=== PATIENT | female | born 1970 | race Caucasian/White ===

== ENCOUNTER → 2017-12-16 | Outpatient (CLI) | payer OTHER | END | disposition home or self-care (01) | LOC: RADMRIMAIN 13:44 | PROVIDERS: ATTEND Family Medicine | DX: R20.0 Anesthesia of skin (principal) | CPT/HCPCS: 82565 ==

== ENCOUNTER → 2018-01-21 | Outpatient (CLI) | payer OTHER ==
--- NOTE | 2018-01-21 16:32 | CT ---
EXAMINATION TYPE: CT brain wo/w con DATE OF EXAM: 01/21/2018 COMPARISON: NONE HISTORY: Left side facial numbness CT DLP: 1620.4 mGycm, Automated exposure control for dose reduction was used. CONTRAST: Patient injected with 100ml mL of Isovue M300. CT of the brain is performed utilizing 3 mm thick sections through the posterior fossa and 3 mm thick sections through the remaining calvarium. Study is performed within 24 hours of arrival to the hospital. No abnormal hyperdensity is present to suggest an acute intracranial hemorrhage. No mass lesion is evident. No acute infarcts are evident. Ventricles and sulci are appropriate for the patient age. No abnormal enhancement is evident. Paranasal sinuses and mastoid air cells within the [id number] are clear. IMPRESSIONS: 1. Normal pre and postcontrast CT brain.
--- NOTE | 2018-01-21 16:47 | CT ---
EXAMINATION TYPE: CT sinus w con DATE OF EXAM: 01/21/2018 COMPARISON: NONE HISTORY: Left side facial numbness CT DLP: 514.1 mGycm CONTRAST: 100ml mL of Isovue M300 The paranasal sinuses are examined in the axial plane at 2 mm thick sections. Reconstructed images i n the coronal plane were obtained. There is dental amalgam scatter artifact The maxillary sinuses are clear. The ethmoid air cells are clear. The sphenoid sinuses are clear. The frontal sinuses are clear. The septum is evaluated. There is septal deviation to the right. The ostiomeatal units are patent. IMPRESSIONS: 1. Normal paranasal sinuses. 2. Right septal deviation. 3. No suspicious etiology to account for left facial numbness
== END | disposition home or self-care (01) ==
LOC: RADCTMAIN 15:50
PROVIDERS: ATTEND Family Medicine
DX: J34.2 Deviated nasal septum (principal); R20.0 Anesthesia of skin
CPT/HCPCS: 70470; 70487; Q9967

== ENCOUNTER → 2018-09-24 | Outpatient (CLI) | payer OTHER ==
--- NOTE | 2018-09-24 11:25 | ECHOF ---
Referral Reason:R00.2 - Palpitations MEASUREMENTS -------- HEIGHT: 165.1 cm WEIGHT: 113.4 kg BP: RVIDd: 3.1 cm (< 3.3) IVSd: 1.3 cm (0.6 - 1.1) LVIDd: 4.0 cm (3.9 - 5.3) LVPWd: 1.2 cm (0.6 - 1.1) IVSs: 1.4 cm LVIDs: 2.2 cm LVPWs: 1.3 cm LAESV Index (A-L): 23.52 ml/m Ao Diam: 3.1 cm (2.0 - 3.7) AV Cusp: 1.2 cm (1.5 - 2.6) LA Diam: 3.3 cm (2.7 - 3.8) MV E Jimbo: 0.95 m/s MV DecT: 294 ms MV A Jimbo: 1.14 m/s MV E/A Ratio: 0.83 RAP: 5.00 mmHg RVSP: 11.21 mmHg FINDINGS -------- Sinus rhythm. This was a technically adequate study. The left ventricular size is normal. There is mild concentric left ventricular hypertrophy. Overa ll left ventricular systolic function is normal with, an EF between 55 - 60 %. The right ventricle is normal in size and function. Normal LA size by volume 22+/-6 ml/m2. The right atrium is normal in size. There is mild aortic valve sclerosis. There is no evidence of aortic regurgitation. There is no e vidence of aortic stenosis. Mild mitral annular calcification present. There is trace to mild mitral regurgitation. Trace tricuspid regurgitation present. Right ventricular systolic pressure is normal at < 35 mmHg. There is no evidence of pulmonary hypertension. Trace/mild (physiologic) pulmonic regurgitation. The aortic root size is normal. Normal inferior vena cava with normal inspiratory collapse consistent with estimated right atrial pre ssure of 5 mmHg. There is no pericardial effusion. CONCLUSIONS -------- 1. Sinus rhythm. 2. This was a technically adequate study. 3. The left ventricular size is normal. 4. There is mild concentric left ventricular hypertrophy. 5. Overall left ventricular systolic function is normal with, an EF between 55 - 60 %. 6. Normal LA size by volume 22+/-6 ml/m2. 7. There is mild aortic valve sclerosis. 8. Mild mitral annular calcification present. 9. There is trace to mild mitral regurgitation. 10. Trace tricuspid regurgitation present. 11. Right ventricular systolic pressure is normal at < 35 mmHg. 12. There is no evidence of pulmonary hypertension. 13. Trace/mild (physiologic) pulmonic regurgitation. 14. The aortic root size is normal. 15. There is no pericardial effusion. MARKETING SPECIALIST: Rick Murray RDCS
== END | disposition home or self-care (01) ==
LOC: RADECHMAIN 08:32
PROVIDERS: ATTEND Family Medicine
DX: I51.7 Cardiomegaly (principal); I35.8 Other nonrheumatic aortic valve disorders
CPT/HCPCS: 93306

== ENCOUNTER 2019-05-06 15:01 | Emergency (ER) | payer OTHER ==
[2019-05-06 15:08] VITALS: BP 133/78; PULSE 90; RESP 16; TEMP 97.8
[2019-05-06] MEDS ORDERED: ACETAMINOPHEN TAB 500 MG TAB PO STA (15:28)
[2019-05-06] MEDS ORDERED: CYCLOBENZAPRINE 10MG STARTER 3 TAB BTL PO STA (15:29)
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
== END 2019-05-06 16:35 | disposition home or self-care (01) ==
LOC: EC 15:01
DX: S13.4XXA Sprain of ligaments of cervical spine, initial encounter (principal); S46.912A Strain of unspecified muscle, fascia and tendon at shoulder and upper arm level, left arm, initial encounter; R51 Headache; Z88.0 Allergy status to penicillin; Z88.8 Allergy status to other drugs, medicaments and biological substances; V49.49XA Driver injured in collision with other motor vehicles in traffic accident, initial encounter; Y93.89 Activity, other specified; Y92.410 Unspecified street and highway as the place of occurrence of the external cause
CPT/HCPCS: 70450; 71046; 72125; 99284

== ENCOUNTER → 2019-08-15 | Outpatient (CLI) | payer OTHER ==
[~2019-08-15] MED LIST: REGADENOSON 0.4 MG/5 ML SYRINGE IV ONE
--- NOTE | 2019-08-15 12:06 | EST ---
EXERCISE STRESS DATE OF SERVICE: 08/15/2019 AGE: 49 SEX: Female HT: 5'3" WT: 250 PROTOCOL: Lexiscan Cardiolite STAGE: DURATION OF EXERCISE: HEART RATE REST: 70 BLOOD PRESSURE REST: 100/68 MAXIMUM HEART RATE ACHIEVED: 84 MAXIMUM BLOOD PRESSURE: 180/67 85% MPHR: 144 100% MPHR: 169 METS: INDICATIONS: Chest pain. CLINICAL INFORMATION: Baseline EKG revealed normal sinus rhythm without significant ST-T changes. Patient was administered Lexiscan as per protocol, developed some transient shortness of breath. Heart rate changed from 70 to 84 beats per minute. Blood pressure changed from 100/68 to 180/67. EKG was unremarkable and patient really did not have significant anginal symptoms. By EKG criteria, this is unremarkable Lexiscan stress test. The nuclear scan results which are more pertinent will be reported by the radiologist. FCO / ELY: [id number] /
--- NOTE | 2019-08-15 12:49 | NM ---
EXAMINATION TYPE: NM stress lexiscan cardiolite DATE OF EXAM: 08/15/2019 COMPARISON: NONE HISTORY: Atypical chest pain TECHNIQUE: After the intravenous administration of 10.2 mCi Tc 99m Sestamibi - Cardiolite resting SP ECT images acquired 55 minutes post injection. The patient received 0.4mg Lexiscan, 26.5 mCi Tc 99m Sestamibi - Stress images obtained [address] injection FINDINGS: Review of stress and rest SPECT images demonstrates no a small fixed defect in the inferior wall at t he basilar segment with mild surrounding increased intensity and large or segmental distribution on s tress imaging. Gated analysis shows normal wall motion with an estimated left ventricular ejection f raction of 77 %. TID is within normal limits calculated at 1.1. IMPRESSION: Small fixed defect of the anterior wall of the left ventricle representing a small infarct with large r area of poppy-infarct ischemia.
== END | disposition home or self-care (01) ==
LOC: RADNMMAIN 08:02
PROVIDERS: ATTEND Family Medicine
DX: I21.9 Acute myocardial infarction, unspecified (principal); I25.9 Chronic ischemic heart disease, unspecified
CPT/HCPCS: 93017; 78452; A9500; J2785

== ENCOUNTER → 2019-08-22 | Day surgery (SDC) | payer OTHER ==
[2019-08-19 09:13] VITALS: BMI 43.2
[~2019-08-22] MED LIST changes: +LACTATED RINGERS 1,000 ML IV SCH; +LIDOCAINE 1% 20 ML VIAL (10MG/ML) FOR IV START INTRADERMA ONE; +PROPOFOL 10 MG/ML 20 ML VIAL IV ONE; -REGADENOSON 0.4 MG/5 ML SYRINGE IV ONE
[2019-08-22 09:57] VITALS: TEMP 98.5
--- NOTE | 2019-08-22 10:33 | P.PCN ---
Date of Procedure: 08/22/19 Description of Procedure: BRIEF HISTORY: Pleasant 49-year-old female presenting for outpatient colonoscopy for screening for malignant neoplasm. Patient reports a remote history of colonoscopy in her 30s performed for rectal bleeding. She denies any current symptoms of rectal bleeding, abdominal pain or change in bowel habits. She is unsure but believes her grandmother had colon cancer. PROCEDURE PERFORMED: Colonoscopy with polypectomy. PREOPERATIVE DIAGNOSIS: Screening for malignant neoplasm colon, last colonoscopy in her 30s for rectal bleeding. ESTIMATED BLOOD LOSS: Minimal. IV sedation per Anesthesia. PROCEDURE: After informed consent was obtained, the patient, was brought into the endoscopy unit. IV sedation was administered by Anesthesia under continuous monitoring. Digital rectal examination was normal. Initially the Olympus CF-190 flexible video colonoscope was then inserted in the rectum, gradually advanced into the cecum without any difficulty. Careful examination was performed as the scope was gradually being withdrawn. Ileocecal valve and the appendiceal orifice were visualized and appeared normal. Prep was excellent. Mucosa of the cecum, ascending colon, transverse colon, descending colon, sigmoid colon, and rectum appeared normal. A small 4 mm ascending colon polyp removed with cold snare polypectomy. Diminutive 2 mm hepatic flexure polyp removed with cold forcep polypectomy. 2 diminutive 1 mm rectal polyps removed with cold forcep polypectomy, likely representing hyperplastic polyps. Retroflexion was performed in the rectum and no lesions were seen, low-grade internal hemorrhoids. The patient tolerated the procedure well. IMPRESSION: 3 diminutive polyps removed from the hepatic flexure and rectum with cold forcep polypectomy. Small ascending colon polyp removed with cold snare polypectomy. RECOMMENDATIONS: Findings of this examination were discussed with the patient and her boyfriend. Okay to resume diet. Okay to resume medications. Anticipate repeat colonoscopy in 5 years for history of colon polyps pending pathology from polypectomies.
[2019-08-22 10:34] VITALS: RESP 17
[2019-08-22 10:56] VITALS: BP 97/60; PULSE 70
== END ==
LOC: ORWHC2ENDO 09:06
PROVIDERS: ATTEND Internal Medicine
DX: Z12.11 Encounter for screening for malignant neoplasm of colon (principal); D12.2 Benign neoplasm of ascending colon; D12.3 Benign neoplasm of transverse colon; K62.1 Rectal polyp; I10 Essential (primary) hypertension; J45.909 Unspecified asthma, uncomplicated; G47.33 Obstructive sleep apnea (adult) (pediatric); Z87.19 Personal history of other diseases of the digestive system; Z88.0 Allergy status to penicillin; Z88.8 Allergy status to other drugs, medicaments and biological substances; Z79.1 Long term (current) use of non-steroidal anti-inflammatories (NSAID); Z79.899 Other long term (current) drug therapy; Z80.0 Family history of malignant neoplasm of digestive organs
CPT/HCPCS: 81025; 88305; 45380; 45385; J2704

== ENCOUNTER → 2021-01-21 | Outpatient (CLI) | payer SELFPAY ==
--- NOTE | 2021-01-21 08:11 | US ---
EXAMINATION TYPE: US abdomen complete DATE OF EXAM: 01/21/2021 COMPARISON: NONE CLINICAL HISTORY: R10.11 RUQ Pain, R22.31 mass of right forearm. Pt states RUQ pain x "many months" EXAM MEASUREMENTS: Liver Length: 17.5 cm Gallbladder Wall: 0.2 cm CBD: 0.9 cm Spleen: 10.1 cm Right Kidney: 11.3 x 3.9 x 4.9 cm Left Kidney: 11.8 x 4.9 x 4.4 cm Large pt body habitus Pancreas: Obscured by bowel gas Liver: wnl Gallbladder: wnl Evidence for sonographic Fish's sign: No CBD: Dilated Spleen: wnl Right Kidney: wnl, lower pole gassed out Left Kidney: wnl Upper IVC: wnl Abd Aorta: Mid wnl, proximal and distal portions gassed out The liver is homogenous. The intrahepatic portion of the IVC and proximal abdominal aorta are within normal limits. There is no evidence of cholelithiasis. The visualized portions of the pancreas are homogenous. The spleen is unremarkable. Kidneys are symmetric and free of hydronephrosis. No delfino l lesions are seen. IMPRESSION: Limited examination. Dilated common bile duct. Otherwise unremarkable study.
--- NOTE | 2021-01-21 08:12 | US ---
EXAMINATION TYPE: US extremity nonvasc mass RT DATE OF EXAM: 01/21/2021 COMPARISON: NONE CLINICAL HISTORY: R10.11 RUQ Pain, R22.31 mass of right forearm. Pt states right posterior forearm pa lpable lump x about 1 month In area of pt's palpable right posterior forearm there is a vague isoechoic area= 4.5 x 1.0 x 3.0 c m ?possible lipoma IMPRESSION: Probable lipoma at the site of clinical concern. Correlate clinically.
== END | disposition home or self-care (01) ==
LOC: RADUSWWP 07:34
PROVIDERS: ATTEND Family Medicine
DX: K83.8 Other specified diseases of biliary tract (principal); R22.31 Localized swelling, mass and lump, right upper limb
CPT/HCPCS: 76700

== ENCOUNTER → 2022-06-27 | Outpatient (CLI) | payer BC ==
--- NOTE | 2022-06-27 13:01 | US ---
EXAMINATION TYPE: US pelvis complete transvag DATE OF EXAM: 06/27/2022 COMPARISON: NONE CLINICAL HISTORY: N83.201 ovarian cyst. Family history of ovarian cancer. Personal history of right ovarian cyst. No pain, symptoms today TECHNIQUE: . Transabdominal sonographic images of the pelvis were acquired. Transvaginal sonographi c images were medically necessary to better assess the following anatomy: Date of LMP: 06/23/2022 EXAM MEASUREMENTS: Uterus: 12.4 x 4.7 x 6.4 cm Endometrial Stripe: 0.48 cm Right Ovary: Not visualized Left Ovary: 4.2 x 2.5 x 2.4 cm 1. Uterus: Anteverted Nabothian cysts visualized. 2. Endometrium: wnl 3. Right Ovary: Obscured by overlying bowel gas 4. Left Ovary: wnl, although slightly limited by overlying bowel gas 5. Bilateral Adnexa: wnl 6. Posterior cul-de-sac: wnl IMPRESSION: Cervical nabothian cysts. Otherwise unremarkable study.
== END | disposition home or self-care (01) ==
LOC: RADMAMWWP 11:53
PROVIDERS: ATTEND Obstetrics & Gynecology
DX: Z12.31 Encounter for screening mammogram for malignant neoplasm of breast (principal); N83.201 Unspecified ovarian cyst, right side
CPT/HCPCS: 76830; 76856; 77067

== ENCOUNTER → 2024-04-13 | Outpatient (CLI) | payer BC ==
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
== END | disposition home or self-care (01) ==
LOC: RADUSWWP 07:03
PROVIDERS: ATTEND Family Medicine
DX: K80.20 Calculus of gallbladder without cholecystitis without obstruction (principal)
CPT/HCPCS: 76700

== ENCOUNTER 2024-08-09 11:22 | Day surgery (SDC) | payer BC ==
[2024-08-09] MEDS: IV FLUID CONTINUATION 1,000 ML IV ONE (11:55)
[2024-08-09] MEDS: LACTATED RINGERS 1,000 ML IV SCH (12:00)
[2024-08-09 12:05] VITALS: RESP 16; TEMP 98
[2024-08-09] MEDS ORDERED: PROPOFOL 10 MG/ML 20 ML VIAL IV ONE (12:47)
[2024-08-09] MEDS ORDERED: LIDOCAINE 1% INJ 10MG/ML (20 ML MDV) ONE (12:47)
--- NOTE | 2024-08-09 12:57 | P.PCN ---
Date of Procedure: 08/09/24 Procedure(s) Performed: BRIEF HISTORY: Patient is a 54-year-old, pleasant, white female scheduled for an upper endoscopy with CBD stent removal. She had an ERCP for bile leak about 8 weeks ago for which he underwent ERCP with CBD stent placement. PROCEDURE PERFORMED: Esophagogastroduodenoscopy with CBD stent removal.. PREOPERATIVE DIAGNOSIS: History of CBD stent placement for bile leak 2 months ago . IV sedation per anesthesia. PROCEDURE: After informed consent was obtained, the patient was brought into the endoscopy unit. IV sedation was administered by Anesthesia under continuous monitoring. Initially the Olympus GIF-140 video endoscope was inserted into the mouth. Esophagus intubated without any difficulty. It was gradually advanced into the stomach and duodenum and carefully examined. The bulb and the second part of the duodenum appeared normal. The previously placed stent was iden tified. Using a snare the CBD stent was captured and was gently withdrawn along with the scope. The scope at this time was withdrawn to the stomach, adequately insufflated with air, and upon careful examination, mucosa of the antrum, body, cardia and the fundus appeared normal. The scope was then withdrawn into the esophagus. Small hiatal hernia seen. The GE junction was located at 39 cm from the incisors. The esophagus appeared normal. There were no erosions or ulcerations seen and the patient tolerated the procedure well. IMPRESSION: 1. Successful removal of CBD stent as described above. 2. Small hiatal hernia. RECOMMENDATIONS: The findings of this examination were discussed with the patient as well as her family. She was advised to follow-up in the office as needed..
[2024-08-09 13:18] VITALS: BP 115/72; PULSE 63
== END 2024-08-09 13:35 | disposition home or self-care (01) ==
LOC: ORWHC2ENDO 11:22
PROVIDERS: ATTEND Internal Medicine Gastroenterology
DX: K82.8 Other specified diseases of gallbladder (principal); K44.9 Diaphragmatic hernia without obstruction or gangrene; I10 Essential (primary) hypertension; J45.909 Unspecified asthma, uncomplicated; G47.33 Obstructive sleep apnea (adult) (pediatric); F41.9 Anxiety disorder, unspecified; K21.9 Gastro-esophageal reflux disease without esophagitis; Z88.0 Allergy status to penicillin; Z88.6 Allergy status to analgesic agent; Z79.02 Long term (current) use of antithrombotics/antiplatelets; Z79.899 Other long term (current) drug therapy
CPT/HCPCS: 81025; 44799; 43247; J2003; J2704

== ENCOUNTER → 2024-10-14 | Day surgery (SDC) | payer BC ==
[2024-10-12 15:47] VITALS: BMI 51.5
[~2024-10-14] MED LIST changes: +DOCUSATE 100 MG CAP PO STA; -LACTATED RINGERS 1,000 ML IV SCH; -LIDOCAINE 1% 20 ML VIAL (10MG/ML) FOR IV START INTRADERMA ONE
[2024-10-14] MEDS: IV FLUID CONTINUATION 1,000 ML IV ONE (12:58)
[2024-10-14 13:02] VITALS: TEMP 98
[2024-10-14] MEDS: LACTATED RINGERS 1,000 ML IV SCH (13:23)
--- NOTE | 2024-10-14 14:18 | P.PCN ---
Date of Procedure: 10/14/24 Procedure(s) Performed: BRIEF HISTORY: Patient is a 54-year-old pleasant white female scheduled for an elective colonoscopy as a part of history of colon polyps. Last colonoscopy was 5 years ago. PROCEDURE PERFORMED: Colonoscopy with snare polypectomy. PREOPERATIVE DIAGNOSIS: History of colon polyps. IV sedation per Anesthesia. PROCEDURE: After informed consent was obtained, the patient, was brought into the endoscopy unit. IV sedation was administered by Anesthesia under continuous monitoring. Digital rectal examination was normal. Initially the Olympus CF-160 flexible video colonoscope was then inserted in the rectum, gradually advanced into the cecum without any difficulty. Careful examination was performed as the scope was gradually being withdrawn. Ileocecal valve and the appendiceal orifice were visualized and appeared normal. Prep was excellent. Mucosa of the cecum, ascending colon, appeared normal. In the transverse colon there was a 5 mm polyp that was removed by cold snare polypectomy. The rest of the transverse colon, descending colon, sigmoid colon, and rectum appeared normal. Retroflexion was performed in the rectum and no lesions were seen. The patient tolerated the procedure well. IMPRESSION: 5 mm transverse colon polyp status post cold snare polypectomy Rest of the colon appeared normal RECOMMENDATIONS: Findings of this examination were discussed with the patient as well as her family. She was advised to follow-up with the biopsy results. If the biopsy is adenoma she can have repeat colonoscopy in 5 years..
[2024-10-14 14:25] VITALS: RESP 16
[2024-10-14 14:46] VITALS: BP 117/60; PULSE 79
== END ==
LOC: ORWHC2ENDO 11:56
PROVIDERS: ATTEND Internal Medicine Gastroenterology
DX: Z12.11 Encounter for screening for malignant neoplasm of colon (principal); D12.3 Benign neoplasm of transverse colon; I10 Essential (primary) hypertension; J45.909 Unspecified asthma, uncomplicated; G47.33 Obstructive sleep apnea (adult) (pediatric); K21.9 Gastro-esophageal reflux disease without esophagitis; F41.9 Anxiety disorder, unspecified; F32.A Depression, unspecified; Z79.899 Other long term (current) drug therapy; Z99.89 Dependence on other enabling machines and devices; Z86.0100 Personal history of colon polyps, unspecified; Z79.51 Long term (current) use of inhaled steroids; Z98.890 Other specified postprocedural states; Z90.49 Acquired absence of other specified parts of digestive tract; Z88.0 Allergy status to penicillin; Z88.8 Allergy status to other drugs, medicaments and biological substances
CPT/HCPCS: 81025; 88305; 45385; J2704

== ENCOUNTER → 2024-12-13 | Outpatient (CLI) | payer BC ==
--- NOTE | 2024-12-13 08:29 | MM ---
Reason for Exam: Screening (asymptomatic). Last mammogram was performed 1 year(s) and 5 month(s) ago. Patient History: Menarche at age 10. First Full-Term at age 29. Late child-bearing (after 28). Patient tested for BRCA1 outcome was negative. Patient tested for BRCA2 outcome was negative. Patient used Hormonal Contraceptives for 2 years. Mother had ovarian cancer, age 77. Last menstrual period: 11/07/2024 Risk Values: Charla 5 year model risk: 1.7%. NCI Lifetime model risk: 10.9%. Prior Study Comparison: 10/25/2018 Bilateral MG 3D screening mammo w/cad, [facility]. 11/24/2019 Bilateral MG 3D screening mammo w/cad, [facility]. 03/05/2021 Bilateral MG 3D screening mammo w/cad, [facility]. 06/27/2022 Bilateral MG screening mammo w CAD, [facility]. 06/30/2023 Bilateral Screening Mammogram, [facility]. Tissue Density: There are scattered areas of fibroglandular density. Findings: Analyzed By CAD. Benign appearing bilateral axillary lymph nodes are redemonstrated. There is no suspicious group of microcalcifications or new suspicious mass in either breast. Overall Assessment: Negative, BI-RAD 1 Management: Screening Mammogram of both breasts in 1 year. . Patient should continue monthly self-breast exams. A clinical breast exam by your physician is recommended on an annual basis. This exam should not preclude additional follow-up of suspicious palpable abnormalities. Note on Charla scores and lifetime risk: 1. A Charla score greater than 3% is considered moderate risk. If this is the case, consider specialist referral to assess eligibility for a risk reducing agent. 2. If overall lifetime risk for the development of breast cancer is 20% or higher, the patient may qualify for future screening with alternating mammogram and breast MRI. [facility], , 12/13/2024 8:26 AM. Electronically signed and approved by: Florian Bueno M.D.
== END | disposition home or self-care (01) ==
LOC: RADMAMWWP 07:52
PROVIDERS: ATTEND Family Medicine
DX: Z12.31 Encounter for screening mammogram for malignant neoplasm of breast (principal); R92.323 Mammographic fibroglandular density, bilateral breasts; Z92.0 Personal history of contraception
CPT/HCPCS: 77067

== ENCOUNTER → 2024-12-13 | Outpatient (CLI) | payer BC ==
--- NOTE | 2024-12-28 12:29 | P.HOLTER ---
Holter monitor shows sinus mechanism, heart rates ranging from 52-111 beats a minute 11 brief runs of nonsustained SVT, longest for 7 beats No sustained arrhythmias No bradycardia arrhythmias
== END | disposition home or self-care (01) ==
LOC: RADECHMAIN 07:43
PROVIDERS: ATTEND Family Medicine
DX: R00.2 Palpitations (principal); I47.10 Supraventricular tachycardia, unspecified
CPT/HCPCS: 93225